=== PATIENT | female | born 1990 | race Caucasian/White ===

== ENCOUNTER 2023-07-27 11:29 | Outpatient (CLI) | payer OTHER, SELFPAY ==
--- NOTE | 2023-07-27 11:45 | CRLHL7_ITS ---
For Patients: As a result of the Cures Act, medical imaging exams and procedure reports are released immediately into your electronic medical record. You may view this report before your referring provider. If you have questions, please contact your health care provider. HISTORY: Dating and viability COMPARISON: None available of this gestation. TECHNIQUE: Transvaginal ultrasound examination of the early was performed. FINDINGS: A single intrauterine gestational sac is seen with a pole. The crown-rump length measurement of 2.2 cm gives an estimated gestational age of 8 weeks 6 days with an estimated date of delivery of 03/01/2024. This correlates well with the LMP of 05/24/2023 which gives a clinical age of 9 weeks 1 day. Regular cardiac activity is seen at 180 BPM. There is a small subchorionic hemorrhage superior to the gestational sac measuring 1.4 x 0.5 x 1.6 centimeters. There is no sign of free fluid in the pelvis. There is a complex cyst in the right ovary with low level echoes throughout the majority of the cyst and increased peripheral color Doppler flow, a probable corpus luteum cyst of . The ovaries are otherwise normal in appearance. IMPRESSION: Single intrauterine gestation with estimated age of 8 weeks 6 days. Regular cardiac activity is seen. Dictated by Omer Junior MD @ 07/30/2023 12:01:57 AM (Electronically Signed)
== END 2023-07-27 11:30 | disposition home or self-care (01) ==
LOC: US 11:30
PROVIDERS: Visit Provider Registered Nurse
DX: Z34.91 Encounter for supervision of normal pregnancy, unspecified, first trimester (principal); Z3A.08 8 weeks gestation of pregnancy
CPT/HCPCS: 76817; 86592; 86703; 86704; 86706; 86762; 86787; 86803; 86850; 86900; 86901; 87086; 87340; 87491; 87591

== ENCOUNTER 2023-10-12 08:09 | Outpatient (CLI) | payer OTHER, SELFPAY ==
--- NOTE | 2023-10-12 08:15 | CRLHL7_ITS ---
For Patients: As a result of the Cures Act, medical imaging exams and procedure reports are released immediately into your electronic medical record. You may view this report before your referring provider. If you have questions, please contact your health care provider. INDICATION: Evaluate anatomy. COMPARISON: 07/27/2023 TECHNIQUE: Real time otoole scale imaging of the fetus was performed as well as color Doppler analysis of the umbilical vessels. FINDINGS: Sonographic imaging demonstrates a single living intrauterine gestation. Fetus demonstrates a regular cardiac rate of 135 beats per minute. Fetus has a vertex position. The placenta lies posteriorly without evidence of placenta previa. Edge of the placenta is 4.8 cm from the internal cervical os. Amniotic fluid volume appears normal. Single deepest vertical pocket: 3.9 cm. The cervix is closed and measures 3.2 cm in length. The composite ultrasound gestational age is calculated at 19 weeks 3 days with an estimated sonographic due date of 03/04/2024. The estimated weight is 306 grams which lies at the 21st %. The following biometric measurements were obtained: Biparietal diameter: 4.3 cm/18 weeks 6 days 8th% Head circumference: 16.6 cm/19 weeks 2 days 10th% Abdominal circumference: 14.4 cm/19 weeks 5 day 31st% Femur length: 3.1 cm/19 weeks 5 days 28th% The HC/AC ratio measures: 1.15 range (1.08-1.26) On anatomic survey, there is a normal appearance of the cerebral ventricles, cavum septi pellucidi, cisterna magna and cerebellum. The nose, lips, and facial profile appear normal. The cervical, thoracic and lumbar spine are well visualized and appear normal. There is a normal four-chamber heart view and the left and right ventricular outflow tracts appear normal. The diaphragm and stomach appear normal. The kidneys and bladder also appear normal. There is a normal three-vessel cord and cord insertion site. The four extremities appear normal. IMPRESSION: Normal OB ultrasound exam with concordance of clinical and sonographic dating. No intrinsic abnormalities noted on anatomic survey. Dictated by Gage Meléndez MD @ 10/12/2023 11:48:35 AM (Electronically Signed)
== END 2023-10-12 08:10 | disposition home or self-care (01) ==
LOC: US 08:11
PROVIDERS: Visit Provider Advanced Practice Midwife
DX: Z34.92 Encounter for supervision of normal pregnancy, unspecified, second trimester (principal); Z3A.19 19 weeks gestation of pregnancy
CPT/HCPCS: 76805

== ENCOUNTER 2023-12-07 15:05 | Outpatient (CLI) | payer SELFPAY | END 2023-12-07 15:06 | disposition home or self-care (01) | LOC: NFLDREF 12-10 14:36 | PROVIDERS: Visit Provider Midwife | DX: Z34.93 Encounter for supervision of normal pregnancy, unspecified, third trimester (principal); Z3A.28 28 weeks gestation of pregnancy | CPT/HCPCS: 86592 ==

== ENCOUNTER 2024-02-01 09:55 | Outpatient (CLI) | payer SELFPAY ==
[2024-02-02 11:23] LABS: Strep B DNA Probe Negative (Negative)
[2024-02-02 11:35] LABS: Strep B Susceptibility Needed? No
== END 2024-02-01 09:56 | disposition home or self-care (01) ==
LOC: NFLDREF 10:00
PROVIDERS: Visit Provider Midwife
DX: Z34.83 Encounter for supervision of other normal pregnancy, third trimester (principal)
CPT/HCPCS: 87081; 87653

== ENCOUNTER 2024-03-02 21:44 | Outpatient (CLI) | payer SELFPAY ==
[2024-03-02] VITALS (7 sets, daily range): BP systolic 106–121; BP diastolic 68–76; PULSE 67–77
[2024-03-02] MEDS: MAG HYDROX/ALUMINUM HYD/SIMETH 30 ML ORAL.SUSP PO (22:05)
[2024-03-02 22:59] LABS: Hematocrit 35.4 % (33.0-51.0); Hemoglobin* 11.6 gm/dL (12.0-16.0); Mean Corpuscular HGB Conc 33 gm/dL (32-36); Mean Corpuscular Hemoglobin 29 pg (26-34); Mean Corpuscular Volume 87 fL (80-100); Platelet Count* 229 K/uL (140-440); Red Blood Count 4.06 m/uL (4.00-5.20); White Blood Count* 10.43 K/uL (4.50-11.00)
[2024-03-02 23:01] LABS: Slide Review Reflex No
[2024-03-02 23:05] LABS: Total Protein Urine < 5 mg/dL
[2024-03-02 23:06] LABS: Creatinine Urine 81.2 mg/dL; Protein Creatinine Ratio Urine 0.06 (0-0.19)
[2024-03-02 23:11] LABS: Aspartate Amino Transferase* 21 U/L (12-35); Creatinine* 0.6 mg/dL (0.5-1.5); Estimated Glomerular Filt Rate 122 ml/min
[2024-03-02 23:12] LABS: Alanine Aminotransferase* 13 U/L (4-35); Blood Urea Nitrogen* 11 mg/dL (5-24)
--- NOTE | 2024-03-03 02:16 | PC.OBNST ---
NST Note NST Note Start: 03/02/24 21:50 Freq: ONCE Status: Discharge Protocol: Document 03/02/24 23:33 [facility] (Rec: 03/02/24 23:34 [facility] [id number]) NST Note 4 Para (# of births) 2 EDC 02/28/24 Gestational Age In Weeks & Days 40 Weeks & 3 Days Patient Presented with Complaint(s) of Pain If Pain, describe location epigastric Reactive Yes Appropriate for Gestational Age Yes RN Mayte RN Date 03/02/24 Reactive Yes Appropriate for Gestational Age Yes RN Reynaldo RN Date 03/02/24 OB NST charge Yes Complete NST Note via Write Note Yes The provider's electronic signature indicates the NST is reactive/appropriate for gestational age. *Note to provider: If an addendum is required, open the patient's chart and click on the note under the Nurse/Allied Health tab.
== END 2024-03-02 23:25 | disposition home or self-care (01) ==
LOC: OB OUT 21:44 → OB 21:46
PROVIDERS: Visit Provider Advanced Practice Midwife
DX: O26.893 Other specified pregnancy related conditions, third trimester (principal); R10.13 Epigastric pain; Z3A.40 40 weeks gestation of pregnancy
CPT/HCPCS: 36415; 59025; 82565; 82570; 84156; 84450; 84460; 84520; 85027; G0463; A9270

== ENCOUNTER 2024-03-06 07:04 | Inpatient (IN) | payer SELFPAY ==
[2024-03-06] VITALS (43 sets, daily range): BP systolic 103–132; BP diastolic 64–80; PULSE 66–110; RESP 16–20; TEMP 36.3–36.8; O2SAT 89–100; BMI 26.0
--- NOTE | 2024-03-06 08:02 | P.LDBA_ITS ---
Subjective History of Present Illness Narrative: Nisreen is a 33 year old at 41 0/7 weeks gestation admitted for IOL for post-dates. She has had mild cramping over the last week but everything has resolved with rest. She endorses movement today and denies any leaking of fluid or bleeding. Her full history and physical was dictated by MERRITT Nguyen on 03/06/2024. Please see this for details. Specific Issues/Plans G 4 P 2011 H&P completed 02/15/24 by Dax BANG Post-dates IOL scheduled 03/06 Having her 3rd girl! 1st baby in the [place]. Others were born in her home country [place] [facility] [place] [facility]. Her is from [place]. They are living in [place]. #Hx of Hep B, no current infection Hepatitis B + surface antibody, + core antibody, - surface antigen: indicates she has recovered from a prior Hep B infection and cannot infect others. # Rubella indeterminant. Rec. PP vaccine. # EFW 21% at 20wks, BPD 8%. Children were 8lbs and 9lbs. States that she measured small for dates with them. Can consider growth [place]. Covid: Completed. Not up-to-date with booster. Recommended. Declines. 01/04/2024= PHQ: 1/RONNELL: 0 OB - Problem Based A/P Additional Plan (1) Encounter for induction of labor: Status: Acute (2) Post term , 41 weeks: Status: Acute (3) Rubella non-immune status, antepartum: Status: Acute Plan ASSESSMENT:? 33 yo at 41 0/7 weeks gestation? complicated by:?Hx of Hep B, no current infection, Rubella indeterminant Labor type: Induced, early labor? Category 1 FHR pattern.?? Labor complicated by: none? GBS negative? ? PLAN:? 1. Routine intrapartum cares as ordered. Reviewed options of IOL including AROM vs Pitocin. We discussed risk/benefits of both. She remembers feeling labor intensify after AROM with her last. She desires AROM and if no change after 6 hours, we can consider pitocin as needed. Will place IV if pitocin is needed. Patient is okay with AMTSL. 2. Monitoring per policy, intermittent unless pitocin IOL is utilized.? 3. Planning unmedicated . Desires water . Consent signed. Hep C negative. Candidate for analgesia of choice.?? 4. Patient encouraged to reposition and ambulate to promote physiologic labor and .? 5. Anticipate ? Delivery/Labor/Induction Plan Plan: induction Induction method: AROM OB Exam Physical Exam Vital signs: Temp Pulse Resp BP Pulse Ox 97.7 F 80 20 113/73 97 03/06/24 07:18 03/06/24 07:17 03/06/24 07:18 03/06/24 07:17 03/06/24 07:16 Narrative: Vitals Reviewed Constitutional:? Alert and oriented x3 HEENT:? Normocephalic, atraumatic Neck:? Supple Lungs:? Clear to auscultation bilaterally Heart:? Regular rate and rhythm, no murmur, rub or gallop Abdomen:? Soft, nontender, and gravid. Vertex by Chavez's, confirmed with cervical exam. Extremities:? No edema or erythema Cervix: 5 cm/70%/-1 station/vertex NST: 125 bpm/moderate variability/15x15 accelerations/no decelerations/contractions occasionally or irritability Detailed Labor and Delivery Exam Patient Gravid: Yes
[2024-03-06] MEDS: OXYTOCIN 10 UNIT/ML INJ IM (16:02)
--- NOTE | 2024-03-06 17:24 | W.PM.VAGDE_ITS ---
OB Procedure Vag Delivery Mother Details Mother Details: The patient is a 33 year-old, 4, now Para 3, admitted on 03/06/24 at 41.0 weeks gestation. : 4 Para: 3 Weeks Gestation: 41.0 Admission Date: 03/06/24 Additional Details Amniotic Membrane Status: AROM Amniotic Membrane Rupture Date: 03/06/24 Amniotic Membrane Rupture Time: 07:57 Amniotic Membrane Fluid Description: Clear Analgesia/Anesthesia Type: Nitrous Oxide Waterbirth: No Pitcoin: Yes (AMTSL only) Intrapartal Events: Labor Induction Induction Method: AROM Labor Onset: 13:42 Complete: 15:35 Pushin:59 Heart: heart tones during second stage were reassuring via intermittent monitoring. Delivery Details Delivery Date: 03/06/24 Delivery Time: 15:59 Route of delivery: Infant Gender: Female Infant Viability: Alive; Heart Rate Present Position at Delivery: OA Delivery Details: Patient was admitted for induction of labor for post dates. She was AROM'd this morning for induction with clear, pink tinged fluid and progressed normally. Patient was assumed complete with pushing at 1535. of a viable female at 1559 in semi-reclined position on the bed. Vertex delivered OA. No nuchal cord or shoulder however there was a coil of cord delivered just after head with body delivered easily and without incident quickly after. Infant passed to mothers abdomen with a vigorous cry. Cord was clamped and cut at > 5 minutes. APGARS wer e 8 at one minute and 9 at five minutes respectively. Mouth was bulb suctioned. Intact placenta with a 3 vessel cord delivered spontaneously at 1613. Fundus firm. Intact perineum identified and repaired in typical fashion. QBL 50 cc. Mother and baby stable; mother plans to breastfeed. weight pending. 1 Minute Interval Total Score: 8 5 Minute Interval Total Score: 9 Additional Details Shoulder Dystocia: No Placenta Delivery Time: 16:13 Placental Delivery Description: Spontaneous Procedure Done: Global Blood Loss: 50 Laceration: None Blood Loss Measurement Type: EBL Bakri Used: No Cord Vessel Description: 3 Vessels Event Summary Status: Mother and infant were stable after delivery. Disposition: floor
[2024-03-07 01:11] VITALS: BP 107/67; PULSE 82; RESP 16; TEMP 36.8; O2SAT 94
[2024-03-07 04:55] VITALS: BP 116/72; PULSE 78; RESP 16; TEMP 36.7; O2SAT 96
[2024-03-07 09:30] VITALS: BP 119/77; PULSE 69; RESP 16; TEMP 36.5; O2SAT 96
[2024-03-07] MEDS: DOCUSATE SODIUM 100 MG CAPSULE PO (09:34)
--- NOTE | 2024-03-07 09:51 | P.DS_ITS ---
DS: Providers Provider Date Seen: 03/07/24 Date of admission: 03/06/24 07:04 Primary care physician: Not a Local Provider Admitting Clinician: Bridgette Kaye CNM Attending Physician on discharge: Dax BANG APRN Date of Discharge: 03/07/24 DS: Diagnosis Discharge Diagnosis (1) care and examination of lactating mother: Status: Acute Exam Narrative: Exam Narrative: GENERAL APPEARANCE:? normal affect, alert, no distress MOOD:? appropriate CHEST:? clear to auscultation HEART:? regular rate and rhythm ABDOMEN:? soft, non-tender the uterine fundus is 1 cm below Umbilicus, Midline and is appropriate for the stage of recovery. PERINEUM:?deferred. no laceration EXTREMITIES:? normal and no edema Const: Vital Signs, click to edit/add: Vital Signs - 24 hr 03/06/24 10:27 03/06/24 11:25 03/06/24 11:26 Temperature 97.6 F 97.5 F L Pulse Rate 66 Pulse Rate [Pulse Oximeter] Respiratory Rate 16 Blood Pressure 117/75 Blood Pressure [Ri ght Arm] Pulse Oximetry 98 Oxygen Delivery Oh thod 03/06/24 12:29 03/06/24 13:37 03/06/24 13:39 Temperature 98.1 F 97.7 F 97.6 F Pulse Rate Pulse Rate [Pulse Oximeter] Respiratory Rate Blood Pressure Blood Pressure [Ri ght Arm] Pulse Oximetry Oxygen Delivery Oh thod 03/06/24 15:30 03/06/24 15:32 03/06/24 16:11 Temperature 97.4 F L Pulse Rate 68 Pulse Rate [Pulse Oximeter] Respiratory Rate 20 Blood Pressure 132/80 Blood Pressure [Ri ght Arm] Pulse Oximetry 98 100 Oxygen Delivery Oh thod 03/06/24 16:16 03/06/24 16:21 03/06/24 16:26 Temperature Pulse Rate 80 Pulse Rate [Pulse Oximeter] Respiratory Rate Blood Pressure 115/69 Blood Pressure [Ri ght Arm] Pulse Oximetry 100 100 98 Oxygen Delivery Oh thod 03/06/24 16:29 03/06/24 16:31 03/06/24 16:31 Temperature 97.5 F L Pulse Rate 74 Pulse Rate [Pulse Oximeter] Respiratory Rate Blood Pressure 124/69 Blood Pressure [Ri ght Arm] Pulse Oximetry 100 Oxygen Delivery Oh thod 03/06/24 16:36 03/06/24 16:41 03/06/24 16:44 Temperature Pulse Rate 75 Pulse Rate [Pulse Oximeter] Respiratory Rate Blood Pressure 125/68 Blood Pressure [Ri ght Arm] Pulse Oximetry 100 100 Oxygen Delivery Oh thod 03/06/24 16:46 03/06/24 16:51 03/06/24 16:56 Temperature Pulse Rate Pulse Rate [Pulse Oximeter] Respiratory Rate Blood Pressure Blood Pressure [Ri ght Arm] Pulse Oximetry 100 100 [facility] 03[facility] 16:59 03/06/24 16:59 03/06/24 17:01 Temperature 97.7 F Pulse Rate 69 Pulse Rate [Pulse Oximeter] Respiratory Rate Blood Pressure 121/68 Blood Pressure [Ri ght Arm] Pulse Oximetry 100 [facility] 03/06/24 17:06 03/06/24 17:11 03/06/24 17:14 Temperature Pulse Rate 71 Pulse Rate [Pulse Oximeter] Respiratory Rate Blood Pressure 122/72 Blood Pressure [Ri ght Arm] Pulse Oximetry 100 99 89 [facility] 03/06/24 17:16 03/06/24 17:21 03/06/24 17:26 Temperature Pulse Rate Pulse Rate [Pulse Oximeter] Respiratory Rate Blood Pressure Blood Pressure [Ri ght Arm] Pulse Oximetry 100 100 98 [facility] 03/06/24 17:29 03/06/24 17:31 03/06/24 17:36 Temperature Pulse Rate 79 Pulse Rate [Pulse Oximeter] Respiratory Rate Blood Pressure 120/69 Blood Pressure [Ri ght Arm] Pulse Oximetry 100 99 [facility] 03/06/24 17:41 03/06/24 17:44 03/06/24 17:46 Temperature Pulse Rate 71 Pulse Rate [Pulse Oximeter] Respiratory Rate Blood Pressure 117/67 Blood Pressure [Ri ght Arm] Pulse Oximetry 97 98 [facility] 03/06/24 17:51 03/06/24 17:56 03/06/24 17:59 Temperature Pulse Rate 76 Pulse Rate [Pulse Oximeter] Respiratory Rate Blood Pressure 127/71 Blood Pressure [Ri ght Arm] Pulse Oximetry 97 96 [facility] 03/06/24 17:59 03/06/24 18:01 03/06/24 19:49 Temperature 98.0 F 98.3 F Pulse Rate Pulse Rate [Pulse Oximeter] 110 H Respiratory Rate 16 Blood Pressure Blood Pressure [Ri ght Arm] 103/64 Pulse Oximetry 97 95 Oxygen Delivery Me thod Room Air 03/07/24 01:11 03/07/24 04:55 03/07/24 09:30 Temperature 98.2 F 98.1 F 97.7 F Pulse Rate Pulse Rate [Pulse Oximeter] 82 78 69 Respiratory Rate 16 16 16 Blood Pressure Blood Pressure [Ri ght Arm] 107/67 116/72 119/77 Pulse Oximetry 94 96 96 Oxygen Delivery Me thod Room Air Room Air Room Air OB - DS: Summary Hospital Course Hospital Course: Nisreen is a 33 y.o. G 3 P 3003 who was admitted to [facility] for IOL for post dates.? She had a NVD that was uncomplicated. The patient feels well.? The pain is well controlled with current medications.? She has no new complaints.? She is breast feeding and reports things are going well. the patient has done well.? Vitals have been stable.? She has remained afebrile.? Has a good appetite, is tolerating a general diet.? She is voiding without difficulty.? She is not yetpassing gas and has not had a bowel movement.? She is ambulating and denies any dizziness.? Has small amount of rubra lochia. She is planning NFP/condoms for prevention.? ?? Problems: none? ?? plan:? Discharge home with baby.? Follow up in 2 weeks and 6 weeks.? , may see if needed? Hgb 11.6. ? Peripartum Data delivery method: Vaginal Episiotomy description: None [place] Gender: Female Infant Discharge Plan: Home Status at Discharge Overall status at discharge: patient is progressing back to baseline Time Spent with Patient Time attestation: Total time spent providing and/or coordinating discharge services: Time spent: Less than 30 minutes Discharge Plan Discharge Disposition: Home, Self-Care Date of Admission: 03/06/24 07:04 Attending Provider on Discharge: Brisa Forrester Primary Care Provider: Provider,Not a Local Condition: Stable Anticipated Discharge Date/Time: 03/07/24 12:00 Discharge Medications: Continued DHA 200 mg capsule 200 mg PO DAILY Discharge Orders: Discharge Order (Routine); Ordered 03/07/24 Ordered By: Brisa Forrester Patient Education: OB Care, OB Vaginal/Breast Feeding Additional Instructions: Discharge instructions were reviewed with the patient including signs and symptoms of infection and home going medications Nothing vaginally for 6 weeks: no tampons or intercourse Do not drive while taking narcotic pain medication(s) Off Work or School for 6 weeks Symptoms to report to doctor: * Bleeding that saturates more than one pad per hour * Passing clots larger than the size of a golf ball * Pain not relieved by prescribed medication * Fever above 100.4 degrees Fahrenheit * A foul vaginal odor * Difficulty in emotions, mood, and functions * Thoughts of hurting yourself and/or * Painful, reddened area in your breast * Any drainage, redness, or tenderness in your IV/epidural site * Severe headache that doesn't improve after taking medications * Changes in vision, including temporary loss of vision, blurred vision, and/or light sensitivity * Upper abdominal pain (usually under ribs on the right side) * Decrease in urination or painful, frequent urinating * Chest pain * Shortness of breath * Tenderness or pain with redness and/swelling in the calf(s) of your leg 2-week visit: discuss infant feeding concerns, review control options and screen for anxiety/depression. 6-week visit for an annual exam. consultation services are available to all mothers and babies for the first year after delivery.? To make an appointment, please call [phone]. For pain control of perineum, breast and pelvic pain, take 600 mg Ibuprofen every 6 hours as needed by mouth or 1000 mg acetaminophen (Tylenol) every 6 hours by mouth as needed. You can alternate these so you are taking something every 3 hours as needed. A heating pad can also be used for your abdomen or breasts. You may also take docusate sodium up to twice daily to soften your stools and help to prevent constipation. You may wean off of it when your stools return to normal.? Activity Level: Activity as Tolerated and No strenuous activity Discharge Diet: Regular Follow Up Appointments: [facility] [Provider Group] Forms: wiserith Info Instructions
[2024-03-07 12:37] VITALS: BP 107/70; PULSE 83; RESP 16; TEMP 36.5; O2SAT 96
[2024-03-07 17:18] VITALS: BP 120/80; PULSE 83; RESP 16; TEMP 36.7; O2SAT 97
[2024-03-07] MEDS: MEASLES,MUMPS,RUBELLA VACC/PF 1 DOSE INJ 1 EACH SUBCUT (17:25)
[2024-03-07] MEDS: TETANUS/DIPHTH/PERTUSSIS 0.5 ML SYRINGE IM (17:27)
== END 2024-03-07 17:45 | disposition home or self-care (01) | DRG 807 ==
PROVIDERS: Admitting Provider Advanced Practice Midwife; Visit Provider Advanced Practice Midwife
DX: O48.0 Post-term pregnancy (principal); Z37.0 Single live birth; Z3A.41 41 weeks gestation of pregnancy; Z23 Encounter for immunization; Z28.39 Other underimmunization status; Z86.19 Personal history of other infectious and parasitic diseases
CPT/HCPCS: 86592; 90715; A9270; J2590

== ENCOUNTER 2024-03-12 13:06 | Outpatient (CLI) | payer SELFPAY ==
--- NOTE | 2024-03-12 14:09 | W.PM.LAC.MC ---
Consult Note - Mom Date of Visit Date of visit: 03/12/24 Reason for consultation: Low Milk Supply Visit Code: Visit Patient's Information Phone number: [phone] : 4 Para: 3 Allergies No Known Drug Allergies Allergy (Verified 03/06/24 07:40) Mother's medical history: Other (history of low milk supply with first 2 children) Mother's Medical History: Medical History (Updated 03/08/24 @ 00:01 by Background Go) Scoliosis ?M41.9 - Scoliosis, unspecified (ICD-10) Miscarriage ?O03.9 - Complete or unspecified spontaneous without complication (ICD-10) Delivery Information Delivery type: Vaginal Gestational Age: 41 Gestational Weight For Age: AGA Weight: 3.56 kg Discharge Weight: 3.408 kg Percentage weight loss: 4.3 Baby's Information Baby's Age at Visit: 7 days Baby's Provider or Clinic: [facility] Jaundice: Yes Past Experience Past Experience: Yes Current Frequency of Day Feedings: every 3 hrs day and night, needs waking for some feedings Both Breasts: Yes Suck: strong Latch: slightly shallow, nipple creased Length of Time: can go 20-30 minutes Goals: not sure given history of low supply Pumping Pumping: Yes Quantity Pumped: 5-10 ml at most Supplementing EBM Supplement: Yes Formula Supplement: Yes Baby Elimination Number of Wet Diapers a Day: ea feeding Number of BM a Day: was 3-4/day, now none for 24 hours Breast/Nipple Condition Breast Shape: Tubular (slight) and Pliable Engorgement: No Maternal Nipple Condition - Left: Common Nipple Maternal Nipple Condition - Right: Common Nipple Sore Nipples: Yes Interventions for Sore Nipples: Lansinoh/Nipple Cream Baby Assessment Skin: Yellow (jaundice to belly, better than 2 days ago per mom) Tongue/frenulum: Restricted mid-range (possible slightly tethered oral tissue; discussed with mom) Palate: Average Lips: Relaxed and Symmetrical Jaw Alignment: Symmetrical Mucosa: [place], moist Onsite Observation Pre-Feed weight: 3.33 kg (no increase in 2 days from clinic visit) Post-Feed weight: 3.33 kg Milk Transferred (mL): 0 Position: Cross cradle Attachment/latch-on achieved: With difficulty Suck pattern: Extended suck phase Swallow: None Behavior following feed: Alert, fussy Pre-Nursing Left Nipple: Within Normal Limits Pre-Nursing Right Nipple: Within Normal Limits Post-Nursing Left Nipple: Creased/Beveled (slight creasing at edges of nipple) Post-Nursing Right Nipple: Creased/Beveled (slight creasing at edge of nipple) Assessments/Interventions Assessments/Interventions: Mom has been feeding baby or pumping (or both) every 3 hours since d/c home 5 days ago She started taking More Milk Plus and Moringa in hopes of bringing in more of a milk supply. She tried nursing her first baby for about 2 weeks, and then needed to supplement due to weight loss. She also nursed her 2nd baby, for about a month, but also supplemented when that baby hit an 8% weight loss. She had a plugged duct over the weekend that was hard and painful; was able to work it out with feeding, pumping, warm pack and showers. Nipples are slightly sore but getting better. observation: Baby latches well to both breasts, needs some adjustment for a wider, deeper latch. Mom able to hand express a few drops of milk prior to latching. Once babe is nursing, a few swallowing motions noted in neck, but no audible swallows heard. Mom states baby will nurse 20-30 minutes on one side if allowed. She does not feel full, does not feel a let down, and does not feel a change in her breast from beginning to end of feeding. She is enjoying for the bonding aspect, and she knows baby is getting at least a little milk with all the antibodies, but also knows baby needs more volume for growth and is comfortable with supplementing so baby will grow well. Education provided: Asymmetric latch technique for wide/deep latch to increase milk, Transfer for baby and increase comfort for mom, Supply/demand nature of milk supply and Need for frequent stimulation/milk removal Feeding Plan: Mom will continue to breastfeed as desired for bonding and to give what milk she has available for baby. Discussed mom continuing to take the supplements she has to see if this will help; discussed the possibility (albeit unlikely) that she could experience delayed Lactogenesis II as has sometimes happened and been reported in literature. Mom is enjoying and will continue with this routine for a bit to see if this happens. Recommend about 5-10 minutes ea breast so as to not have baby burn more calories than she is taking in. Discussed increasing baby's formula volume to meet her needs. Follow-Up Suggested follow up: Appointment as needed Recommend baby be seen by provider for:: 2 week check up Time Spent Time spent with patient (min): 60 Meds Home Medications and Allergies Home Medications ?Medication ?Instructions ?Recorded ?Confirmed ?Type docosahexaenoic acid 200 mg 200 mg PO DAILY 07/27/23 03/06/24 History capsule ( DHA) Allergies Allergy/AdvReac Type Severity Reaction Status Date / Time No Known Drug Allergies Allergy Verified 03/06/24 07:40
== END 2024-03-12 13:07 | disposition home or self-care (01) ==
PROVIDERS: Visit Provider Obstetrics & Gynecology
DX: Z39.1 Encounter for care and examination of lactating mother (principal)
CPT/HCPCS: G0463